=== PATIENT | male | born 2000 | race Caucasian/White ===

== ENCOUNTER 2019-06-01 13:20 | Observation (INO) | payer OTHER ==
[2019-06-01] MEDS ORDERED: Ibuprofen 600 MG Tab PO PRN (14:47)
[2019-06-01] MEDS ORDERED: Sodium Chloride 0.9% 10 ML Syringe FLUSH PRN (14:47)
[2019-06-01] MEDS ORDERED: Albuterol 0.083% 2.5 MG/3 ML Neb Soln NEB PRN (14:47)
[2019-06-01] MEDS ORDERED: Ondansetron 4 MG/2 ML SDV IV PRN (14:47)
[2019-06-01] MEDS ORDERED: Acetaminophen 325 MG Tab PO PRN (14:47)
[2019-06-01] MEDS ORDERED: Ondansetron 4 MG Tab.DIS PO PRN (14:47)
[2019-06-01] MEDS ORDERED: Benzonatate 100 MG Cap PO PRN (14:51)
--- NOTE | 2019-06-01 14:55 | PCM.HP.2 ---
H&P History of Present Illness - General Date of Service: 06/01/19 Admit Problem/Dx: Admission Diagnosis/Problem Admission Diagnosis/Problem Left lower lobe pneumonia Source of Information: Patient, Provider History Limitations: Reports: No Limitations - History of Present Illness Initial Comments - Free Text/Narative: CC: cough HPI: Emerita presents to the hospital for direct admission after presenting to the clinic with cough, shortness of breath, fevers as well as muscle aches. He reports symptoms started about 5 days ago and have progressed since that time. He has achy pain in his shoulders and upper back. He has been coughing and short of breath. He has had subjective fevers at home but has not measured any temperatures because he does not have a thermometer. His lower abdomen is sore from coughing. No report of chest pain. He does feel short of breath. No change in bowel or bladder function. He does have some sick contacts with both of his roommates having similar symptoms though they recovered quickly compared to the progression of his symptoms. He is here today because things have been getting worse rather than better throughout the week. He has tried using DayQuil but vomited this medication up shortly after taking it. Workup in the clinic revealed normal laboratory studies but he was borderline hypoxic with oxygen saturations around 89-90%. Chest x-ray revealed a subtle left lower lung pneumonia. He was sent for direct admission. Lower Back Pain Score (Numeric/FACES): 5 - Related Data Allergies/Adverse Reactions: Allergies Allergy/AdvReac Type Severity Reaction Status Date / Time No Known Allergies Allergy Verified 06/01/19 14:15 Home Medications: Home Meds NK [No Known Home Meds] 06/01/19 [History] Past Medical History Respiratory History: Reports: Bronchitis, Recurrent, Other (See Below) Other Respiratory History: hx of chronic bronchitis, current pneumonia (2019) Gastrointestinal History: Reports: Gastritis, GERD Musculoskeletal History: Reports: Other (See Below) Other Musculoskeletal History: has hx of broken fingers to right hand Neurological History: Reports: Migraines, Other (See Below) Other Neuro History: migrainour (irretractable migraine hx) Psychiatric History: Reports: Depression Hematologic History: Reports: None - Past Surgical History Respiratory Surgical History: Reports: None GI Surgical History: Reports: None Neurological Surgical History: Reports: None, Other (See Below) Other Neurological Surgeries/Procedures: oxxipital nerve injections Musculoskeletal Surgical History: Reports: None Social & Family History - Family History Respiratory: Reports: Asthma (mother) - Tobacco Use Smoking Status *Q: Current Every Day Smoker Years of Tobacco use: 2 Packs/Tins Daily: 1 Second Hand Smoke Exposure: No - Caffeine Use Caffeine Use: Reports: Coffee, Energy Drinks - Alcohol Use Alcohol Use History: Yes - Recreational Drug Use Recreational Drug Use: Yes Recreational Drug Type: Reports: Marijuana/Hashish Recreational Drug Use Frequency: Daily H&P Review of Systems - Review of Systems: Review Of Systems: See Below Free Text/Narrative: A complete 12 point review of systems was obtained. Pertinent positives and negatives are noted in the history of present illness. All other systems were reviewed and were negative except as noted. Exam - Exam Exam: See Below - Vital Signs Vital Signs: Last Vital Signs Temp Pulse 101 H 06/01/19 13:37 Resp 16 06/01/19 13:37 BP 107/73 06/01/19 13:37 Pulse Ox 95 06/01/19 13:37 Weight: 68 kg - Exam Quality Assessment: No: Supplemental Oxygen General: Alert, Oriented, Cooperative. No: Mild Distress HEENT: Conjunctiva Clear. No: Mucosa Moist & [place] (dry), Scleral Icterus Neck: Supple, Trachea Midline. No: Lymphadenopathy Lungs: Normal Respiratory Effort, Crackles (left lung base) Cardiovascular: Regular Rate, Regular Rhythm GI/Abdominal Exam: Normal Bowel Sounds, Soft, Non-Tender, No Distention Extremities: No Pedal Edema. No: Increased Warmth Peripheral Pulses: 2+: Dorsalis Pedis (L), Dorsalis Pedis (R) Skin: Warm, Dry Neuro Extensive - Mental Status: Alert, Oriented x3, Nl Response to Commands Neuro Extensive - Motor, Sensory, Reflexes: No: Dysarthria, Abnormal Motor, Tremor Psychiatric: Alert, Normal Affect - Patient Data Lab Results Last 24 hrs: WBC 5,000 Imaging Impressions Last 24 hrs: CXR - mild peribronchial infiltrate on the left side. No mass or effusion. Heart size is normal. *Q Meaningful Use (ADM) - VTE Risk Assess *Q Each Risk Factor Represents 1 Point: None Total Score 1 Point Risk Factors: 0 Each Risk Factor Represents 2 Points: None Total Score 2 Point Risk Factors: 0 Each Risk Factor Represents 3 Points: None Total Score 3 Point Risk Factors: 0 Each Risk Factor Represents 5 Points: None Total Score 5 Point Risk Factors: 0 Venous Thromboembolism Risk Factor Score *Q: 0 - Problem List (1) Left lower lobe pneumonia SNOMED Code(s): 507778827 ICD Code: J18.1 - LOBAR PNEUMONIA, UNSPECIFIED ORGANISM Status: Acute Current Visit: Yes Qualifiers: Pneumonia type: due to unspecified organism Qualified Code(s): J18.9 - Pneumonia, unspecified organism (2) Tobacco dependence syndrome SNOMED Code(s): 27914261 ICD Code: F17.200 - NICOTINE DEPENDENCE, UNSPECIFIED, UNCOMPLICATED Status : Chronic Current Visit: Yes Problem List Initiated/Reviewed/Updated: Yes Orders Last 24hrs: Active Orders 24 hr Category Date Time Status Patient Status [ADT] Routine ADT 06/01/19 14:47 Ordered Intake and Output [RC] QSHIFT Care 06/01/19 14:47 Ordered Notify Provider Vital Signs [RC] ASDIRECTED Care 06/01/19 14:47 Ordered Oxygen Therapy [RC] PRN Care 06/01/19 14:47 Ordered Peripheral IV Care [RC] . DIRECTED Care 06/01/19 14:49 Ordered RT Aerosol Therapy [RC] ASDIRECTED Care 06/01/19 14:49 Ordered RT Sputum Induction [RC] ASDIRECTED Care 06/01/19 14:00 Active Up ad Grisel [RC] ASDIRECTED Care 06/01/19 14:47 Ordered VTE/DVT Education [RC] Per Unit Routine Care 06/01/19 14:47 Ordered Vital Signs [RC] Q4H Care 06/01/19 14:47 Ordered Regular Diet [DIET] Diet 06/01/19 Dinner Ordered Acetaminophen [Tylenol] Med 06/01/19 14:47 Ordered 650 mg PO Q4H PRN Albuterol [Proventil Neb Soln] Med 06/01/19 14:47 Ordered 2.5 mg NEB Q4H PRN Azithromycin [Zithromax] Med 06/01/19 15:00 Ordered 500 mg PO Q24H Benzonatate [Tessalon Perles] Med 06/01/19 14:51 Ordered 100 mg PO TID PRN Dextromethorphan/guaiFENesin [Robitussin DM] Med 06/01/19 14:51 Ordered 10 ml PO Q4H PRN Docusate Sodium/Sennosides [Senna Plus] Med 06/01/19 14:47 Ordered 1 tab PO BID PRN Ibuprofen [Motrin] Med 06/01/19 14:47 Ordered 600 mg PO Q6H PRN Ondansetron [Zofran ODT] Med 06/01/19 14:47 Ordered 4 mg PO Q6H PRN Ondansetron [Zofran] Med 06/01/19 14:47 Ordered 4 mg IV Q6H PRN Sodium Chloride 0.9% @ 125 MLS/HR (1000ml) Med 06/01/19 15:00 Ordered Sodium Chloride 0.9% [Normal Saline] 1,000 ml IV ASDIRECTED Sodium Chloride 0.9% [Saline Flush] Med 06/01/19 14:47 Ordered 10 ml FLUSH ASDIRECTED PRN Peripheral IV Insertion Adult [OM.PC] Urgent Oth 06/01/19 14:47 Ordered Resuscitation Status Routine Resus Stat 06/01/19 14:47 Ordered Assessment/Plan Comment:: ASSESSMENT AND PLAN - Left lower lobe pneumonia - borderline hypoxic at this time. Clinically does not feel comfortable sending him home for outpatient management with oxygen saturations in the upper 80s and lower 90s. He does not appear acutely ill but is a little bit dehydrated. -Gentle IV fluids -Antibiotic coverage with azithromycin -Supplement oxygen if needed -Symptomatic management of cough Sputum culture- Tobacco dependence - patient is interested in nicotine replacement therapy while hospitalized. Maintenance issues - - DVT prophylaxis - patient will be ambulatory - GI prophylaxis - not indicated - Nutrition - regular - Powell catheter - not indicated CODE STATUS - full code Admission justification - patient will be referred to observation status to initiate antibiotic therapy and monitor respiratory status Disposition - I would anticipate discharge home after the hospital stay Jacinto Castro M.D. - Mortality Measure Prognosis:: Good
[2019-06-01] MEDS ORDERED: Azithromycin 250 MG Tab PO SCH (15:00)
[2019-06-01] MEDS: Sodium Chloride 0.9% 1,000 ML IV SCH ×2 (15:17→22:35)
[2019-06-01] MEDS: guaiFENesin/Dextromethorphan 100-10 MG/5 ML Soln 10 ML Cup PO PRN (20:08)
[2019-06-01] MEDS: Nicotine 14 MG/24 Hr Patch TRDERM SCH (20:11)
[2019-06-02] MEDS: guaiFENesin/Dextromethorphan 100-10 MG/5 ML Soln 10 ML Cup PO PRN (01:34)
[2019-06-02] MEDS: Sodium Chloride 0.9% 1,000 ML IV SCH (05:56)
--- NOTE | 2019-06-02 08:54 | PCM.DCSUM1 ---
Discharge Summary - Hospital Course Brief History: 18-year-old male with a history of tobacco dependence who presented to the clinic with cough, fever and shortness of breath. He was admitted for management of a left lower lobe pneumonia with borderline hypoxia. Diagnosis: Stroke: No - Discharge Data Discharge Date: 06/02/19 Discharge Disposition: Home, Self-Care 01 Condition: Good - Referral to Home Health Primary Care Physician: Zane Hamilton, DO - Discharge Diagnosis/Problem(s) (1) Left lower lobe pneumonia SNOMED Code(s): 064133011 ICD Code: J18.1 - LOBAR PNEUMONIA, UNSPECIFIED ORGANISM Status: Acute Qualifiers: Pneumonia type: due to unspecified organism Qualified Code(s): J18.9 - Pneumonia, unspecified organism (2) Tobacco dependence syndrome SNOMED Code(s): 71628328 ICD Code: F17.200 - NICOTINE DEPENDENCE, UNSPECIFIED, UNCOMPLICATED Status : Chronic - Patient Summary/Data Hospital Course: Emerita was sent over for direct admission from the walk-in clinic where he had presented with cough, shortness of breath and fever. Workup in the walk-in clinic suggested a left lower lobe pneumonia and oxygenation was borderline with some saturations in the 88-89% range. He was admitted to the hospital and started on a azithromycin as well as symptomatic management for the cough. Temperature curve did improve overnight. Symptomatically he is feeling better. Oxygenation has improved and saturations are now in the 94-96% range. He has tolerated his diet with only mild nausea. He feels well enough to go home at this time and I do believe he is safe for outpatient management. He will have a prescription for 4 more days of azithromycin which he will take daily in the afternoon. He will follow-up if symptoms do not continue to get better or if they get worse. - Patient Instructions Diet: Regular Diet as Tolerated Activity: As Tolerated Showering/Bathing: May Shower Notify Provider of: Fever, Nausea and/or Vomiting Other/Special Instructions: 1. Take azithromycin 500 mg once daily in the afternoon for four more days. Your first dose is due tonight. Increase activity as tolerated. Consider over the counter cough suppressants or mucolytics as needed. 2. Follow up if not improving. - Discharge Plan *PRESCRIPTION DRUG MONITORING PROGRAM REVIEWED*: Not Applicable *COPY OF PRESCRIPTION DRUG MONITORING REPORT IN PATIENT SHAVON[place]: Not Applicable Prescriptions/Med Rec: Azithromycin 500 mg PO QPM #4 tablet Home Medications: Home Meds Azithromycin 500 mg PO QPM #4 tablet 06/02/19 [Rx] Oxygen Therapy Mode: Room Air Patient Handouts: Azithromycin tablets, Community-Acquired Pneumonia, Adult, [id number] - Discharge Summary/Plan Comment DC Time >30 min.: No - Patient Data Vitals - Most Recent: Last Vital Signs Temp 37.8 C 06/02/19 07:00 Pulse 84 06/02/19 07:00 Resp 14 06/02/19 07:00 BP 114/69 06/02/19 07:00 Pulse Ox 94 L 06/02/19 07:00 Weight - Most Recent: 68 kg I&O - Last 24 hours: Intake & Output 06/01/19 06/02/19 06/02/19 22:59 06:59 14:59 Intake Total 350 2528 Balance 350 2528 APPLE Results - Last 24 hrs: Microbiology 06/01/19 14:00 Gram Stain - Final Sputum - Expectorated Med Orders - Current: Current Medications Acetaminophen (Tylenol) 650 mg PO Q4H PRN PRN Reason: Pain (Mild 1-3)/fever Albuterol (Proventil Neb Soln) 2.5 mg NEB Q4H PRN PRN Reason: Shortness Of Breath/wheezing Azithromycin (Zithromax) 500 mg PO Q24H [facility] Last Admin: 06/01/19 15:16 Dose: 500 mg Benzonatate (Tessalon Perles) 100 mg PO TID PRN PRN Reason: Cough Guaifenesin/Dextromethorphan (Robitussin Dm) 10 ml PO Q4H PRN PRN Reason: Cough Last Admin: 06/02/19 01:34 Dose: 10 ml Sodium Chloride (Normal Saline) 1,000 mls @ 125 mls/hr IV ASDIRECTED [facility] Last Admin: 06/02/19 05:56 Dose: 125 mls/hr Ibuprofen (Motrin) 600 mg PO Q6H PRN PRN Reason: Pain/Fever Last Admin: 06/01/19 20:08 Dose: 600 mg Nicotine (Habitrol) 14 mg TRDERM DAILY [facility] Last Admin: 06/01/19 20:11 Dose: 14 mg Ondansetron HCl (Zofran Odt) 4 mg PO Q6H PRN PRN Reason: Nausea able to take PO Last Admin: 06/01/19 16:44 Dose: 4 mg Ondansetron HCl (Zofran) 4 mg IV Q6H PRN PRN Reason: Nausea/Vomiting Senna/Docusate Sodium (Senna Plus) 1 tab PO BID PRN PRN Reason: Constipation Sodium Chloride (Saline Flush) 10 ml FLUSH ASDIRECTED PRN PRN Reason: Keep Vein Open - Exam Quality Assessment: Denies: Supplemental Oxygen General: Reports: Alert, Oriented, Cooperative, No Acute Distress Lungs: Reports: Clear to Auscultation, Normal Respiratory Effort Cardiovascular: Reports: Regular Rate, Regular Rhythm GI/Abdominal Exam: Soft, No Distention Extremities: No Pedal Edema Psy/Mental Status: Reports: Alert, Normal Affect
[2019-06-02] MEDS: Nicotine 14 MG/24 Hr Patch TRDERM SCH (09:17)
== END 2019-06-02 09:51 | disposition home or self-care (01) ==
LOC: INTOOBSV 13:20 → JP.ICU 13:20 → JP.MS 13:20 → UNDOADMOB 13:20 → UNDODISIN 06-02 09:51
PROVIDERS: ADMIT Internal Medicine; ATTEND Internal Medicine
DX: J18.9 Pneumonia, unspecified organism (principal); R09.02 Hypoxemia; K21.9 Gastro-esophageal reflux disease without esophagitis; G43.909 Migraine, unspecified, not intractable, without status migrainosus; F17.210 Nicotine dependence, cigarettes, uncomplicated
CPT/HCPCS: 87070; 87205; A9270; J7030; 96360; 96361; G0378; G0379